=== PATIENT | male | born 1990 | race Caucasian/White ===

== ENCOUNTER 2020-02-10 22:45 | Emergency (ER) | payer SELFPAY ==
[2020-02-10 22:43] VITALS: BP 117/80; PULSE 86; RESP 18; TEMP 36.8; O2SAT 94
[2020-02-10 22:58] LABS: Glucose Point of Care 73 (65-105)
--- NOTE | 2020-02-11 00:03 | ED.GENADULT ---
HPI - General Adult General Chief complaint: Alcohol Stated complaint: ETOH Time Seen by Provider: 02/11/20 00:00 History of Present Illness HPI narrative: Patient presents to the ED via EMS for unresponsive episode. He remembers sleeping on a friend's couch. He is type I diabetic since experience specialist. He also had some alcohol last night. He is in no pain. He has not been sick. He is quite pleasant. He would like some water. Surgeries include circumcision. Medications include insulin. Onset (ago): hour(s) Related Data Allergies Allergy/AdvReac Type Severity Reaction Status Date / Time No Known Allergies Allergy Verified 02/10/20 22:48 Review of Systems Review of Systems: Narrative: CONSTITUTIONAL: Denies fever, chills, or sweats. EYES: Denies visual changes, redness, or discharge. ENT: Denies rhinorrhea, congestion, sore throat, or otalgia. CARDIOVASCULAR: Denies chest pain, palpitations, or edema. RESPIRATORY: Denies cough or dyspnea. GASTROINTESTINAL: Denies abdominal pain, nausea, vomiting, or diarrhea. GENITOURINARY: Denies dysuria or hematuria. SKIN: Denies rash or itching. MUSCULOSKELETAL: Denies back pain, joint pain, or myalgia. NEUROLOGIC: Denies headache, numbness, or weakness. PSYCHIATRIC: Denies anxiety or depression. All systems reviewed & are unremarkable except as noted in HPI and below PMFSH Surgical History Surgical History History of circumcision Social History Social History (Updated 02/11/20 @ 00:06 by She García MD) Alcohol intake: current Gender identity (if verbalized by the patient): Male Exam Narrative: Exam Narrative: GENERAL: Well-appearing, well-nourished, and in no acute distress. Handsome and pleasant. HEAD: Normocephalic, atraumatic. EYES: PERRLA and EOMI. ENT: Nares clear, no rhinorrhea or epistaxis. Mucous membranes moist. NECK: Supple. CHEST: Clear to auscultation. No respiratory distress. HEART: Regular rate and rhythm. No murmur heard. Normal peripheral pulses. ABDOMEN: Soft, nontender, nondistended, normal active bowel sounds. EXTREMITIES: Normal range of motion. No edema. SKIN: Warm, dry, no rash. NEURO: No focal deficits. Alert and oriented x3. PSYCH: Normal mood and affect. Course Reevaluation(s) Reevaluation #1: Patient ate a sandwich tray. He still very polite and charming. He is going to call for a ride home. Date: 02/11/20 Time: 01:06 Reevaluation #2: He was unable to find a ride so he will need to stay until morning. When he is sober he can be discharged. Date: 02/11/20 Time: 01:47 Vital Signs Vital signs: Vital Signs Temperature 98.3 F 02/10/20 22:43 Pulse Rate 86 02/10/20 22:43 Respiratory Rate 18 02/10/20 22:43 Blood Pressure 117/80 02/10/20 22:43 Pulse Oximetry 94 02/10/20 22:43 Temperature 98.3 F 02/10/20 22:43 Pulse Rate 78 02/11/20 06:09 Respiratory Rate 19 02/11/20 06:09 Blood Pressure 127/85 02/11/20 06:09 Pulse Oximetry 100 02/11/20 06:09 Medical Decision Making Medical Records Medical records reviewed: Yes I reviewed the patient's medical records. Vital Signs Vital Signs: Vital Signs Temperature 98.3 F 02/10/20 22:43 Pulse Rate 86 02/10/20 22:43 Respiratory Rate 18 02/10/20 22:43 Blood Pressure 117/80 02/10/20 22:43 Pulse Oximetry 94 02/10/20 22:43 Temperature 98.3 F 02/10/20 22:43 Pulse Rate 78 02/11/20 06:09 Respiratory Rate 19 02/11/20 06:09 Blood Pressure 127/85 02/11/20 06:09 Pulse Oximetry 100 02/11/20 06:09 Lab Data Result diagrams: 02/11/20 00:07 02/11/20 00:07 Labs: Lab Results 02/10/20 02/11/20 02/11/20 Range/Units 22:55 00:07 00:07 WBC 13.1 H (4.5-10.0) K/mm3 RBC 4.69 (4.6-6.20) M/mm3 Hgb 14.7 (14.0-18.0) g/dL Hct 43.2 (42.0-52.0) % MCV 92.1 (80-100) fl MCH 31.3 (26-34) pg MCHC 34.0 (32-36) g/dl RDW
[2020-02-11 00:16] LABS: Basophils Absolute Auto 0.1 K/mm3 (0.0-0.1); Eosinophils Absolute Auto 0.1 K/mm3 (0-0.3); Eosinophils Percent Auto 0.8 % (0-4.4); Hematocrit 43.2 % (42.0-52.0); Hemoglobin 14.7 g/dL (14.0-18.0); Immature Granulocyte Absolute 0.06 K/mm3 (0.00-0.031); Immature Granulocyte Percent A 0.5 % (0-0.5); Lymphocytes Absolute Auto 5.09 K/mm3 (0.9-3.2); Lymphocytes Percent Auto 38.8 % (18.3-44.2); Mean Corpuscular Hemoglobin 31.3 pg (26-34); Mean Corpuscular Volume 92.1 fl (80-100); Mean Platelet Volume 10.4 fl (7.4-10.4); Monocytes Percent Auto 7.8 % (2.6-8.5); Neutrophils Absolute Auto 6.7 K/mm3 (1.3-6.7); Neutrophils Percent Auto 51.1 % (45.5-73.1); Platelet Count Result 400 k/mm3 (150-375); Red Blood Count 4.69 M/mm3 (4.6-6.20); Red Cell Distribution Width 12.5 % (11.5-14.5); White Blood Count 13.1 K/mm3 (4.5-10.0)
--- NOTE | 2020-02-11 00:16 | PC.NURSE ---
Called Pharmacy about Pt.'s medication
[2020-02-11 00:17] VITALS: BP 112/58; PULSE 89; RESP 13; O2SAT 100
[2020-02-11 00:27] LABS: Ethanol 277 mg/dL (<10)
[2020-02-11 00:30] LABS: Alanine Aminotransferase 20 U/L (4-50); Albumin Level 4.9 g/dL (3.5-5.1); Alkaline Phosphatase 94 U/L (38-126); Anion Gap 15 mmol/L (8-16); Aspartate Amino Transferase 25 U/L (17-59); Bilirubin,Total 0.2 mg/dL (0.2-1.3); Blood Urea Nitrogen 8 mg/dL (9-20); Calcium 9.6 mg/dL (8.4-10.2); Carbon Dioxide 23 mmol/L (22-30); Chloride 104 mmol/L (98-107); Estimated CRCL calculation 176 ml/min; Estimated Glomerular Filt Rate > 60; Glucose 77 mg/dL (75-110); Potassium 3.7 mmol/L (3.4-5.0); Sodium 142 mmol/L (137-145)
[2020-02-11 00:32] LABS: Appearance Urine Clear (Clear); Blood Urine Negative (Negative); Color Urine Yellow (Yellow); Glucose Urine UA Negative (Negative); Ketones Urine Negative (Negative); Protein Urine 1+ mg/dL (Negative); Specific Grav Ur 1.008 (1.001-1.035)
[2020-02-11 00:33] LABS: Add Urine Microscopic? YES; Bacteria Urine Trace /hpf; Bilirubin Urine Negative (Negative); Leukocyte Esterase Ur Negative LEU/UL (Negative); Mucus Urine Rare /lpf; Nitrate Urine Negative (Negative); RBC Urine 0-2 /hpf (0-2); Urobilinogen Urine Negative mg/dL (<2.0); WBC Urine 0-3 /hpf
[2020-02-11 00:41] LABS: Amphetamine Screen Urine Negative (Negative); Barbiturate Screen Urine Negative (Negative); Benzodiazepines Screen Urine Negative (Negative); Cannabinoid Screen Urine Positive (Negative); Cocaine Screen Urine Negative (Negative); Methadone Screen Urine Negative (Negative); Opiate Screen Urine Negative (Negative); Phencyclidine Screen Urine Negative (Negative)
[2020-02-11 00:47] LABS: Glucose Point of Care 89 (65-105)
[2020-02-11 01:54] VITALS: BP 128/80; PULSE 87; RESP 19; O2SAT 97
[2020-02-11 06:09] VITALS: BP 127/85; PULSE 78; RESP 19; O2SAT 100
== END 2020-02-11 06:10 | disposition home or self-care (01) ==
PROVIDERS: Emergency Provider Emergency Medicine
DX: R40.20 Unspecified coma (principal); F10.920 Alcohol use, unspecified with intoxication, uncomplicated; Y90.8 Blood alcohol level of 240 mg/100 ml or more; E10.9 Type 1 diabetes mellitus without complications; Z79.4 Long term (current) use of insulin
CPT/HCPCS: 36415; 80053; 80307; 81001; 85025; 96365; 99284; J3411; J3475; J7121